=== PATIENT | male | born 1960 | race Caucasian/White ===

== ENCOUNTER 2022-06-19 13:24 | Emergency (ER) | payer BC, MEDICAID ==
[2022-06-19] MEDS ORDERED: Lidocaine 1% 5 ML VIAL INJECT ONE (13:52)
[2022-06-19] MEDS ORDERED: Diphtheria,Pertussis(Acell),Tetanus Vaccine 0.5 ML Syringe IM ONE (14:09)
[2022-06-19] MEDS ORDERED: Bacitracin Oint 1 GM U/D Packet TOP ONE (14:09)
== END 2022-06-19 14:34 | disposition home or self-care (01) ==
LOC: JP.ED 13:24
DX: S60.552A Superficial foreign body of left hand, initial encounter (principal); E11.9 Type 2 diabetes mellitus without complications; I10 Essential (primary) hypertension; Z79.84 Long term (current) use of oral hypoglycemic drugs; Z79.899 Other long term (current) drug therapy; W45.8XXA Other foreign body or object entering through skin, initial encounter
CPT/HCPCS: 90471; 90715; 99282